=== PATIENT | female | born 1990 | race Caucasian/White ===

== ENCOUNTER 2020-04-24 16:09 | Outpatient (REF) | payer OTHER, SELFPAY ==
[2020-05-01 18:17] LABS: Cardiolipin IgG Ab <14 GPL; Cardiolipin IgM Ab 20 MPL
== END 2020-04-24 16:10 | disposition home or self-care (01) ==
LOC: HO.LAB 16:09
PROVIDERS: PCP Internal Medicine; Visit Provider Psychiatry & Neurology Neurology
DX: G43.909 Migraine, unspecified, not intractable, without status migrainosus (principal)
CPT/HCPCS: 36415; 86147